=== PATIENT | male | born 1995 | race Caucasian/White ===

== ENCOUNTER 2022-03-28 08:56 | Emergency (ER) | payer SELFPAY ==
[2022-03-28 09:15] VITALS: BP 160/89; PULSE 102; RESP 16; TEMP 36.9; O2SAT 98; BMI 33.5
--- NOTE | 2022-03-28 12:57 | DI.RAD.S_ITS ---
PROCEDURE: XR ELBOW RT MIN 3V INDICATIONS: Fall/injury TECHNIQUE: 3 views of the elbow were acquired. COMPARISON: None. FINDINGS: Bones: No fractures or dislocations. No suspicious bony lesions. Soft tissues: No elbow joint effusion. No suspicious soft tissue calcifications. IMPRESSION: Normal right elbow Dictated by: Delvis Ahn M.D. on 03/28/2022 at 13:20 Approved by: Delvis Ahn M.D. on 03/28/2022 at 13:21
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
[2022-03-28] MEDS: cephALEXin 250 MG CAPSULE 500 MG PO (13:04)
[2022-03-28] MEDS: TET,DIPH,PERTUSS(ACELL),VAC/PF 0.5 ML SYRINGE IM (13:04)
== END 2022-03-28 13:53 | disposition home or self-care (01) ==
PROVIDERS: Emergency Provider Emergency Medicine; Family Provider Family Medicine
DX: S51.011A Laceration without foreign body of right elbow, initial encounter (principal); W19.XXXA Unspecified fall, initial encounter; Z23 Encounter for immunization
CPT/HCPCS: 73080; 90471; 99283; 99284; 90715